=== PATIENT | female | born 1965 | race Caucasian/White ===

== ENCOUNTER 2023-07-25 23:36 | Inpatient (IN) | payer BC ==
[~2023-07-25] VITALS: Ht 162.6 cm; Wt 68.0 kg
[~2023-07-25 23:36] MED LIST: ALPR1; ALPR1 PO; ARIP20 PO; BUTASPCAF PO; CIPR500 PO; CLON1; CYCL10 PO; DIAZ5 PO; ESCI10; FLUO20 PO; FROV2.5; FROVA; GABA100; GABA400 PO; HYDACE5 PO; HYDPAM25 PO; IBUP200; IBUP800 PO; METCAR750; METH10; METH10 PO; METH40 PO; METH5; NAPR500 PO; NEBI10 PO; NEBI5 PO; OLAN2.5 PO; OXYACE5T PO; PROP20 PO; SAVELLA PO; SENNP; SEROQUIL; VENL150ER PO
[2023-07-26] VITALS (64 sets, daily range): BP systolic 74–137; BP diastolic 44–102
[2023-07-26 00:35] LABS: BASOPHILS ABSOLUTE AUTO 0.02 K/mm3 (0.00-0.23); BASOPHILS PERCENT AUTO 0 % (0-2); EOSINOPHILS ABSOLUTE AUTO 0.16 K/mm3 (0.00-0.68); EOSINOPHILS PERCENT AUTO 2 % (0-6); Hematocrit 35.4 % (33.0-51.0); Hemoglobin 12.2 g/dL (11.5-16.0); IMMATURE GRAN ABSOLUTE AUTO 0.05 K/mm3 (0.00-0.10); IMMATURE GRAN PERCENT AUTO 1 % (0-1); LYMPHOCYTES ABSOLUTE AUTO 1.46 K/mm3 (0.84-5.20); LYMPHOCYTES PERCENT AUTO 16 % (21-46); MONOCYTES ABSOLUTE AUTO 0.74 K/mm3 (0.16-1.47); MONOCYTES PERCENT AUTO 8 % (4-13); Mean Corpuscular HGB Conc 34.5 g/dL (31.5-36.5); Mean Corpuscular Volume 87 fL (80-100); NEUTROPHILS ABSOLUTE AUTO 6.47 K/mm3 (1.96-9.15); NEUTROPHILS PERCENT AUTO 73 % (41-73); RDW Coefficient Variation 12.7 % (11.7-14.2); RDW Standard Deviation 40.3 fL (35.1-46.3); Red Blood Cell Count 4.06 M/mm3 (3.80-5.20)
[2023-07-26 00:36] LABS: Mean Platelet Volume 9.8 fL (9.1-12.4); Platelet Count 221 K/mm3 (150-400)
[2023-07-26 00:40] LABS: Albumin, Blood 3.6 g/dL (3.4-5.0); Bilirubin, Total 0.7 mg/dL (0.1-1.0); Calcium, Blood 8.7 mg/dL (8.5-10.1); Creatinine, Blood 2.32 mg/dL (0.40-1.00); Globulin, Blood 3.7 g/dL (2.2-4.0); Potassium, Blood 3.4 mmol/L (3.5-5.5); Total Protein, Blood 7.3 g/dL (6.4-8.2)
[2023-07-26 02:41] LABS: Source, Urine Straight Cath
[2023-07-26 02:47] LABS: Bilirubin, Urine Neg (Neg); Blood, Urine Neg (Neg); Glucose Qualitative, Urine Neg (Neg); Ketones, Urine Neg (Neg); Leukocyte Esterase, Urine 1+ (Neg); Nitrite, Urine Neg (Neg); Protein, Urine 1+ (Neg); Specific Gravity, Urine 1.015 (1.003-1.022); Urobilinogen, Urine NORM (Normal)
[2023-07-26 03:09] LABS: Appearance, Urine Clear (Clear); Color, Urine Yellow (P-Yellow)
[2023-07-26 03:13] LABS: Bacteria Few /hpf; Red Blood Cells, Urine Not Seen /hpf (0-2); Squamous Epithelial Cells Few /hpf (Few)
[2023-07-26 05:12] LABS: Magnesium, Blood 1.8 mg/dL (1.6-2.4); Thyroid Stimulating Hormone 1.8 uIU/mL (0.360-4.800)
[2023-07-26 05:33] LABS: BASOPHILS ABSOLUTE AUTO 0.01 K/mm3 (0.00-0.23); BASOPHILS PERCENT AUTO 0 % (0-2); EOSINOPHILS ABSOLUTE AUTO 0.15 K/mm3 (0.00-0.68); EOSINOPHILS PERCENT AUTO 3 % (0-6); Hematocrit 29.4 % (33.0-51.0); Hemoglobin 9.8 g/dL (11.5-16.0); IMMATURE GRAN ABSOLUTE AUTO 0.02 K/mm3 (0.00-0.10); IMMATURE GRAN PERCENT AUTO 0 % (0-1); LYMPHOCYTES ABSOLUTE AUTO 1.22 K/mm3 (0.84-5.20); LYMPHOCYTES PERCENT AUTO 21 % (21-46); MONOCYTES ABSOLUTE AUTO 0.47 K/mm3 (0.16-1.47); MONOCYTES PERCENT AUTO 8 % (4-13); Mean Corpuscular HGB 29.9 pg (26.0-34.0); Mean Corpuscular HGB Conc 33.3 g/dL (31.5-36.5); Mean Corpuscular Volume 90 fL (80-100); Mean Platelet Volume 9.8 fL (9.1-12.4); NEUTROPHILS ABSOLUTE AUTO 3.99 K/mm3 (1.96-9.15); NEUTROPHILS PERCENT AUTO 68 % (41-73); Platelet Count 158 K/mm3 (150-400); RDW Coefficient Variation 12.7 % (11.7-14.2); RDW Standard Deviation 41.4 fL (35.1-46.3); Red Blood Cell Count 3.28 M/mm3 (3.80-5.20); White Blood Cell Count 5.86 K/mm3 (4.00-11.30)
[2023-07-26 05:50] LABS: Influenza A, PCR NEGATIVE (NEGATIVE); Influenza B, PCR NEGATIVE (NEGATIVE); Resp Syncytial Virus, PCR NEGATIVE (NEGATIVE); SARS-Cov-2 (COVID-19) PCR, MMC NEGATIVE (NEGATIVE)
[2023-07-26 06:01] LABS: Albumin, Blood 2.6 g/dL (3.4-5.0); Albumin/Globulin Ratio 0.9 (0.8-1.8); Bilirubin, Total 0.4 mg/dL (0.1-1.0); Bun/Creatinine Ratio 24.3 (12.0-20.0); Calcium, Blood 7.6 mg/dL (8.5-10.1); Creatinine, Blood 1.73 mg/dL (0.40-1.00); Globulin, Blood 2.9 g/dL (2.2-4.0); Potassium, Blood 3.4 mmol/L (3.5-5.5); Total Protein, Blood 5.5 g/dL (6.4-8.2)
--- NOTE | 2023-07-26 06:51 | NUR ---
PT ARRIVED FROM ER AT 0640 MOVED FROM [facility] TO ICU BED. A/O, SR-SB, BP SUPPORTED BY LEVOPHED. BP EVERY 15 MIN. ON ROOM AIR, ON AND OFF 2LNC IN ER PER REPORT. LUNGS CTA. DENIES NAUSEA, NO VOMITING. NO DE [place] CRU[place], VOIDED IN ER PER REPORT. SKIN INTACT, MULTIPLE SCARS TO HER BACK FROM PREVIOUS BACK SURGERIES. PIV X3. NS, LEVOPHED, POTASSIUM AND NS INFUSING. FRIEND GRACIE TO BEDSIDE, HE IS PT'S STATED EMERGENCY CONTACT. CARD WITH ICU PHONE NUMBER GIVEN TO FRIEND. PATIENT ORIENTED PIE CHEF LIGHT AND UNIT ROUTINE. SHE AGREES TO CALL FOR ANY NEEDS.
[2023-07-26] MEDS ORDERED: Robaxin750 MG PO (08:58)
[2023-07-26] MEDS ORDERED: METO50ER PO (08:59)
[2023-07-26] MEDS ORDERED: SUMA25 PO (08:59)
[2023-07-26] MEDS ORDERED: OXYC10ER PO (09:00)
[2023-07-26] MEDS ORDERED: ZYRTEC10 M2 PO (09:01)
[2023-07-26] MEDS ORDERED: VRAYLAR3 MG PO (09:02)
[2023-07-26] MEDS ORDERED: BUSPIRONE HCL30 M1 PO (09:02)
--- NOTE | 2023-07-26 18:13 | NUR ---
DAY SHIFT SUMMARY PT HAS REMAINED ALERT AMND ORIENTED ALL SHIFT COMMUNIATING APPROPRIATELY W STAFF. THE PT'S BP HAS WL AND STABLE ON 1-2 MCG/KG/MIN LEVOPHED THIS SHIFT BUT WHENEVER IT IS TITRATED OFF HER BP QUICKLY DROPS W DBP IN THE 40'S AND MAPS <65. PT DENIES ANY SYMPTOMS W HYPOTENSION. THIS AM THE PT'S MONITOR SHOWED SR 60'S BUT WOULD THE DROP DOWN LOW 47BPM MAINTAINING IN THE 50'S BEFORE GOING BACK TO THE 60'S. THIS HAPPENED SEVERAL TIMES THIS AM BUT RESOLVED BY MID SHIFT W NO MORE EVENTS. PT HAS HAD GOOD URINE OUTPUT THIS SHIFT GETTING TO THE TOILET W MINIMAL ASSSISTANCE DENYING FEELING DIZZY WHEN STANDING UP. PT TOLERATING PO INTAKE WELL THIS SHIFT. PT STILL REPORTS LEFT FLANK PAIN BUT HAS BEEN GETTING RELIEF W THE NORCO IN HER EMAR DESPITE TAKING MUCH LARGER DOSES OF OXYCODONE AT BASELINE FOR HER CHRONIC BACK PAIN. PT HAS CHEST CT AND ECHO TESTS THIS SHIFT, ECHO RESULTS PENDING. PT'S FRIEND AT BEDSIDE FOR MUCH OF THE DAY. WILL REPORT TO ONCOMING RN.
--- NOTE | 2023-07-26 19:15 | NUR ---
ASSUMPTION OF CARE: RECEIVED REPORT FROM JOSE WASHINGTON. PT ALERT AND ORIENTED TO TIME, PERSON, PLACE AND SITUATION. CONTINUOUS CARDIAC MONITORING IN PLACE, SINUS RHYTHM, HR 60'S-70'S. MAP MAINTAINING >65 ON 2 MCG/MIN OF LEVOPHED, INFUSING IN RIGHT PERIPHERAL IV. DENIES CHEST PAIN, PRESSURE OR SOB. LUNG SOUNDS CLEAR IN UPPER LOBES BILATERALLY AND DIMINISHED IN THE BASES. PT ENDORSES PAIN IN HER BACK AND LEFT ABDOMEN, MEDICATED PER MAR WITH RELIEF. ABLE TO AMBULATE TO THE BATHROOM WITH MINIMAL ASSIST. PALE YELLOW URINE NOTED IN HAT. SEE SHIFT ASSESSMENT FOR FULL ASSESSMENT.
[2023-07-27] VITALS (33 sets, daily range): BP systolic 85–139; BP diastolic 53–106
[2023-07-27 03:34] LABS: BASOPHILS ABSOLUTE AUTO 0.01 K/mm3 (0.00-0.23); BASOPHILS PERCENT AUTO 0 % (0-2); EOSINOPHILS ABSOLUTE AUTO 0.25 K/mm3 (0.00-0.68); EOSINOPHILS PERCENT AUTO 5 % (0-6); Hematocrit 30.1 % (33.0-51.0); IMMATURE GRAN ABSOLUTE AUTO 0.01 K/mm3 (0.00-0.10); IMMATURE GRAN PERCENT AUTO 0 % (0-1); LYMPHOCYTES ABSOLUTE AUTO 1.06 K/mm3 (0.84-5.20); LYMPHOCYTES PERCENT AUTO 19 % (21-46); MONOCYTES PERCENT AUTO 7 % (4-13); Mean Corpuscular HGB 29.5 pg (26.0-34.0); Mean Corpuscular HGB Conc 33.2 g/dL (31.5-36.5); Mean Corpuscular Volume 89 fL (80-100); Mean Platelet Volume 9.9 fL (9.1-12.4); NEUTROPHILS ABSOLUTE AUTO 3.81 K/mm3 (1.96-9.15); NEUTROPHILS PERCENT AUTO 69 % (41-73); Platelet Count 171 K/mm3 (150-400); RDW Coefficient Variation 12.4 % (11.7-14.2); RDW Standard Deviation 40.7 fL (35.1-46.3); Red Blood Cell Count 3.39 M/mm3 (3.80-5.20); White Blood Cell Count 5.54 K/mm3 (4.00-11.30)
[2023-07-27 04:02] LABS: Albumin, Blood 2.7 g/dL (3.4-5.0); Anion Gap 4 mmol/L (6-16); Blood Urea Nitrogen 18 mg/dL (8-24); Bun/Creatinine Ratio 21.1 (12.0-20.0); CO2, Blood 25 mmol/L (21-32); Calcium, Blood 8.2 mg/dL (8.5-10.1); Chloride, Blood 116 mmol/L (98-108); Creatinine, Blood 0.85 mg/dL (0.40-1.00); Glomerular Filtration Rate 79 (60-); Glucose, Blood 134 mg/dL (70-99); Phosphorus, Blood 2.5 mg/dL (2.5-4.9); Potassium, Blood 3.8 mmol/L (3.5-5.5); Sodium, Blood 145 mmol/L (136-145)
--- NOTE | 2023-07-27 05:31 | NUR ---
SHIFT SUMMARY: NO ACUTE EVENTS T/O THE SHIFT. PT REMAINS A&O TO PERSON,TIME,SITUATION AND PLACE. LEVOPHED PUT ON STANDBY AT 0318, MAP CONTINUES TO REMAIN >65. SINUS RHYTHM WITH HR IN THE 80'S-90'S. PT ON ROOM AIR WHILE AWAKE WITH 2L NC WHILE ASLEEP. SPO2 >95%. NO C/O SOB. LR INFUSING AT 100 ML/HR THROUGH 18 GAUGE PERIPHERAL IV IN THE RIGHT AC. ABLE TO AMBULATE TO THE TOILET WITH A MINIMAL ASSIST. PALE YELLOW URINE OBSERVED IN HAT. C/O BACK PAIN T/O THE SHIFT, MEDICATED PER JAN WITH RELIEF. PT ABLE TO REPOSITION IN THE BED INDEPENDENTLY. WILL REPORT OFF TO DAY SHIFT RN.
--- NOTE | 2023-07-27 10:32 | NUR ---
SHIFT ASSESSMENT ASSUMED CARE OF PT @ 0700. PT A&OX4, FOLLOWING COMMANDS, AMBULATES TO BSC WITH NO ASSISTANCE. PT STATES SHE IS FEELING MUCH BETTER TODAY, NOW MEDICAL FLOOR STATUS. ON c SATS >95%, BP WNL. TOLERATING PO INTAKE WELL. C/O MODERATE BACK PAIN, MEDICATING PER JAN. NO OTHER ACUTE CHANGES.
[2023-07-27] MEDS ORDERED: ATOR20 (13:50)
[2023-07-27] MEDS ORDERED: SERT100 PO (13:51)
[2023-07-27] MEDS ORDERED: BUPR100ER PO (13:52)
[2023-07-27] MEDS ORDERED: LAMO100 (13:53)
[2023-07-27] MEDS ORDERED: LISINOPRIL-HCT1 EAC1 PO (13:53)
[2023-07-27] MEDS ORDERED: PANT40 PO (13:54)
[2023-07-27] MEDS ORDERED: ATOR20 PO (14:18)
[2023-07-27] MEDS ORDERED: LAMO100 PO (14:20)
[2023-07-27] MEDS ORDERED: VRAYLAR3 MG PO (14:25)
[2023-07-28 02:56] VITALS: BP 132/83
--- NOTE | 2023-07-28 03:41 | NUR ---
SHIFT SUMMARY RECEIVED PT A/O VSS PLEASENT BUT HAD BACK PAIN AND WAS MEDICATED, PT WAS MEDICATED AGAIN WITH IV MED WHEN FIRST DOSE DID NOT HELP. NOW PT COMFORTABLE IN BED, PARTNER AT BEDSIDE BOTH PLAYING GAME. PT SLEEPING DE-SAT TO 86%, NEW PROB PLACED ON FINGER AND 1L NC APPLIED, PT MAINTAINED SAT >94. WILL CONT TO MONITOR.
[2023-07-28 05:41] LABS: BASOPHILS ABSOLUTE AUTO 0.01 K/mm3 (0.00-0.23); BASOPHILS PERCENT AUTO 0 % (0-2); EOSINOPHILS ABSOLUTE AUTO 0.09 K/mm3 (0.00-0.68); EOSINOPHILS PERCENT AUTO 1 % (0-6); Hematocrit 29.3 % (33.0-51.0); Hemoglobin 9.9 g/dL (11.5-16.0); IMMATURE GRAN ABSOLUTE AUTO 0.03 K/mm3 (0.00-0.10); IMMATURE GRAN PERCENT AUTO 1 % (0-1); LYMPHOCYTES ABSOLUTE AUTO 0.62 K/mm3 (0.84-5.20); LYMPHOCYTES PERCENT AUTO 10 % (21-46); MONOCYTES ABSOLUTE AUTO 0.37 K/mm3 (0.16-1.47); MONOCYTES PERCENT AUTO 6 % (4-13); Mean Corpuscular HGB 29.8 pg (26.0-34.0); Mean Corpuscular HGB Conc 33.8 g/dL (31.5-36.5); Mean Corpuscular Volume 88 fL (80-100); Mean Platelet Volume 9.9 fL (9.1-12.4); NEUTROPHILS ABSOLUTE AUTO 5.15 K/mm3 (1.96-9.15); NEUTROPHILS PERCENT AUTO 82 % (41-73); Platelet Count 184 K/mm3 (150-400); RDW Coefficient Variation 12.5 % (11.7-14.2); Red Blood Cell Count 3.32 M/mm3 (3.80-5.20); White Blood Cell Count 6.27 K/mm3 (4.00-11.30)
[2023-07-28 06:11] LABS: Albumin, Blood 2.8 g/dL (3.4-5.0); Anion Gap 3 mmol/L (6-16); Blood Urea Nitrogen 11 mg/dL (8-24); Bun/Creatinine Ratio 14.6 (12.0-20.0); CO2, Blood 27 mmol/L (21-32); Calcium, Blood 8.4 mg/dL (8.5-10.1); Chloride, Blood 113 mmol/L (98-108); Creatinine, Blood 0.75 mg/dL (0.40-1.00); Glomerular Filtration Rate 92 (60-); Glucose, Blood 114 mg/dL (70-99); Phosphorus, Blood 2.2 mg/dL (2.5-4.9); Potassium, Blood 3.9 mmol/L (3.5-5.5); Sodium, Blood 143 mmol/L (136-145)
[2023-07-28 08:47] VITALS: BP 120/79
--- NOTE | 2023-07-28 12:26 | NUR ---
THE PATIENT WAS DISCHARGED HOME WITH HER SPOUSE, AFTER DISCHARGE INSTRUCTIONS WERE GIVEN.Patient up to Ambulate independently. Gait steady. Discharge instructions reviewed with patient. Patient verbalizes understanding. Copy given to patient to take home. Patient States Post-Procedure ride home has been arranged. Discharged via wheelchair to private car for ride home. THE PATIENT'S IV WAS REMOVED BEFORE DISCHARGE.
== END 2023-07-28 12:03 | disposition home or self-care (01) | DRG 682 ==
LOC: ER 23:36 → ICUE 07-26 04:44 → UNDODEPER 07-26 09:48 → ICUE 07-27 08:00 → MEDS 07-27 16:21 → ENPENDDIS 07-28 10:54 → MEDS 07-28 12:03
PROVIDERS: Emergency Medicine; Family Medicine; Physician Assistant; ADMIT Student in an Organized Health Care Education/Training Program
PROC: 3E033XZ Introduction of Vasopressor into Peripheral Vein, Percutaneous Approach (ICD-10-PCS; principal; 2023-07-26)
DX: N17.9 Acute kidney failure, unspecified (principal); R57.1 Hypovolemic shock; E87.1 Hypo-osmolality and hyponatremia; M54.9 Dorsalgia, unspecified; G89.29 Other chronic pain; E83.39 Other disorders of phosphorus metabolism; I10 Essential (primary) hypertension; N20.0 Calculus of kidney; N13.6 Pyonephrosis; K83.8 Other specified diseases of biliary tract; D63.8 Anemia in other chronic diseases classified elsewhere; E87.6 Hypokalemia; Z20.822 Contact with and (suspected) exposure to COVID-19; K80.20 Calculus of gallbladder without cholecystitis without obstruction; Z98.1 Arthrodesis status; Z98.890 Other specified postprocedural states; Z88.1 Allergy status to other antibiotic agents; Z88.8 Allergy status to other drugs, medicaments and biological substances
CPT/HCPCS: 0241U; 36415; 71045; 71250; 74176; 76705; 80053; 80069; 81001; 83605; 83690; 83735; 84443; 85025; 93005; 93010; 93306; 94762; 96361; 96365; 96375; 99285-25; A9270; J0696; J1170; J1644; J1885; J2405; J3010; J3480; J7030; J7050; J7060; J7120